=== PATIENT | male | born 1970 | race Hispanic/Latino ===

== ENCOUNTER 2017-06-30 09:47 | Inpatient (IN) | payer SELFPAY ==
[2017-06-30] MEDS ORDERED: Lorazepam 2 MG/ML VIAL ONE (10:23)
--- NOTE | 2017-06-30 10:28 | RAD ---
PA AND LATERAL CHEST: Date: 06/30/17 HISTORY: Chest pain. COMPARISON: None available. FINDINGS: The cardiac silhouette and pulmonary vasculature are within normal limits. The lungs are clear. The o sseous structures are intact. IMPRESSION: No acute cardiopulmonary process. POS: [facility]
[2017-06-30 10:50] LABS: #Lymphocytes 1.2 thou/uL (1.20-3.40); #Monocytes 0.7 thou/uL (0.11-0.59); #Neutrophils 7.3 thou/uL (1.40-6.50); %Basophils 0.2 % (0.0-1.0); %Eosinophils 0.1 % (0.0-10.0); %Lymphocytes 12.8 % (21.0-51.0); %Monocytes 7.2 % (0.0-10.0); %Neutrophils 79.7 % (42.0-75.0); Hemoglobin 13.6 g/dL (14.0-18.0); Mean Corpuscular HGB CONC 35.4 g/dL (32.0-36.0); Mean Corpuscular Hemoglobin 31.8 pg (27.0-31.0); Mean Corpuscular Volume 89.9 fl (80.0-94.0); Platelet Count 292 thou/uL (130-400); RBC Distribution Width 11.3 % (11.5-14.5); Red Blood Cell (RBC) Count 4.29 mill/uL (4.70-6.10); White Blood Cell (WBC) Count 9.2 thou/uL (4.8-10.8)
[2017-06-30 11:11] LABS: Acetaminophen Less than 6.0 mcg/mL (10.0-30.0); Alcohol 182 mg/dL (Less than 10); Salicylate Less than 8.0 mg/dL (15.0-30.0)
[2017-06-30 11:17] LABS: Troponin I Less than 0.010 ng/mL (< 0.028)
[2017-06-30 11:20] LABS: ALT (SGPT) 64 U/L (8-55); AST (SGOT) 63 U/L (5-34); Alkaline Phosphatase 96 U/L (40-150); Anion Gap 16 mmol/L (10-20); BUN (Urea Nitrogen) 4 mg/dL (8.9-20.6); Bilirubin, Total 0.7 mg/dL (0.2-1.2); CK (CPK) 1233 U/L (30-200); Calc. Creatinine Clearance 0 mL/min (70-130); Calcium 7.5 mg/dL (7.8-10.44); Carbon Dioxide 22 mmol/L (22-29); Chloride 89 mmol/L (98-107); Estimated GFR-MDRD Greater than 90; Globulin 2.7 g/dL (2.4-3.5); Glucose 122 mg/dL (70-105); Protein, Total 6.7 g/dL (6.0-8.3); Sodium 124 mmol/L (136-145)
[2017-06-30 11:21] LABS: CKMB 34.6 ng/mL (0-6.6)
[2017-06-30 11:27] LABS: Potassium 2.6 mmol/L (3.5-5.1)
[2017-06-30 11:37] LABS: Lipase 12 U/L (8-78)
[2017-06-30] MEDS ORDERED: Ondansetron PF 4 MG/2 ML Vial ONE (11:53)
[2017-06-30] MEDS ORDERED: Pantoprazole 40 MG VIAL ONE (11:53)
[2017-06-30] MEDS ORDERED: Potassium Chloride 20 MEQ TAB ONE (11:53)
[2017-06-30 12:00] LABS: Bilirubin Negative (Negative); Blood, Urine Trace (Negative); Clarity CLEAR (Clear); Glucose, Urine (Dipstick) Negative (Negative); Leukocyte Negative (Negative); Nitrite Negative (Negative); Protein, Urine (Dipstick) Negative (Neg-Trace); Specific Gravity, Urine 1.011 (1.002-1.036); Urobilinogen 0.2 mg/dL (0.2-1.0)
[2017-06-30 12:06] LABS: Bacteria/HPF None Seen HPF (None Seen); Hyaline Casts/LPF 0-3 HYALINE CAST LPF (0-3 Hyaline); RBC/HPF 0-3 HPF (0-3); Squamous Epithelial None Seen HPF (0-3); WBC/HPF None Seen HPF (0-3)
[2017-06-30 12:12] LABS: Amphetamine Not Detected (NotDetected); Barbiturates Screen Not Detected (NotDetected); Benzodiazepine Screen Not Detected (NotDetected); Cocaine Metabolite Screen Detected (NotDetected); Medtox Control Line Valid? VALID (VALID); Medtox Reader # READER 1; Methadone Not Detected (NotDetected); Methamphetamine Not Detected (NotDetected); Opiate Screen Not Detected (NotDetected); Oxycodone Screen Not Detected (NotDetected); Phencyclidine (PCP) Not Detected (NotDetected); THC/Cannabinoid Screen Not Detected (NotDetected); Tricyclic Screen Not Detected (NotDetected)
[2017-06-30] MEDS ORDERED: Potassium Chloride 20 MEQ in Sodium Chloride 0.9% 250 ML 250 ML IVPB SCH (12:15)
[2017-06-30] MEDS ORDERED: Multivitamins, Adult 10 ML, Thiamine HCl 100 MG, Folic Acid 1 MG in Dextrose 5 %-0.45 %... IV SCH (12:15)
[2017-06-30 13:57] LABS: Troponin I Less than 0.010 ng/mL (< 0.028)
[2017-06-30] MEDS ORDERED: Acetaminophen 325 MG TAB PO PRN (16:31)
[2017-06-30] MEDS ORDERED: Enoxaparin Sodium 40 MG/0.4 ML SYRINGE SC SCH (16:31)
[2017-06-30] MEDS ORDERED: HYDROcodone/Acetaminophen 5/325 mg Tablet PO PRN (16:31)
[2017-06-30] MEDS ORDERED: Ondansetron ODT 4 MG TAB PO PRN (16:31)
[2017-06-30] MEDS ORDERED: Diazepam 5 MG TAB PO PRN (16:33)
[2017-06-30] MEDS ORDERED: Thiamine HCl 200 MG/2 ML VIAL IM SCH (16:45)
[2017-06-30] MEDS ORDERED: Diazepam 5 MG TAB PO SCH (16:45)
[2017-06-30 17:13] LABS: Troponin I Less than 0.010 ng/mL (< 0.028)
[2017-06-30 17:21] VITALS: BMI 23.2
[2017-06-30 17:22] LABS: CKMB 29.7 ng/mL (0-6.6); Critical Call CKMB RESULT DECREASING
[2017-06-30] MEDS: Potassium Chloride 20 MEQ TAB PO SCH ×3 (17:31→21:08)
[2017-06-30] MEDS: HYDROcodone/Acetaminophen 10/325 mg Tablet PO PRN ×2 (18:02→23:51)
[2017-06-30] MEDS ORDERED: FLU VACC QS2017-18 36 mo. & older 0.5 ML SYRINGE IM ONE (19:00)
[2017-06-30] MEDS: Famotidine 20 MG TAB PO SCH (21:03)
[2017-07-01 00:57] LABS: Troponin I Less than 0.010 ng/mL (< 0.028)
[2017-07-01 01:09] LABS: Critical Call CKMB RESULT DECREASING
[2017-07-01] MEDS ORDERED: Diazepam 5 MG TAB PO PRN (04:00)
[2017-07-01 05:39] LABS: #Eosinphils 0.1 thou/uL (0.0-0.7); #Monocytes 0.7 thou/uL (0.11-0.59); #Neutrophils 4.8 thou/uL (1.40-6.50); %Basophils 0.1 % (0.0-1.0); %Eosinophils 0.8 % (0.0-10.0); %Lymphocytes 15.7 % (21.0-51.0); %Neutrophils 73.4 % (42.0-75.0); Hemoglobin 14.7 g/dL (14.0-18.0); Mean Corpuscular HGB CONC 34.4 g/dL (32.0-36.0); Mean Corpuscular Hemoglobin 31.7 pg (27.0-31.0); Mean Corpuscular Volume 92.2 fl (80.0-94.0); Mean Platelet Volume 7.3 fL (7.4-10.4); Platelet Count 284 thou/uL (130-400); RBC Distribution Width 11.6 % (11.5-14.5); Red Blood Cell (RBC) Count 4.64 mill/uL (4.70-6.10); White Blood Cell (WBC) Count 6.5 thou/uL (4.8-10.8)
[2017-07-01 06:10] LABS: Anion Gap 11 mmol/L (10-20); BUN (Urea Nitrogen) 6 mg/dL (8.9-20.6); CK (CPK) 544 U/L (30-200); Calc. Creatinine Clearance 97 mL/min (70-130); Calcium 9.4 mg/dL (7.8-10.44); Carbon Dioxide 25 mmol/L (22-29); Chloride 103 mmol/L (98-107); Estimated GFR-MDRD Greater than 90; Glucose 92 mg/dL (70-105); Magnesium 2.6 mg/dL (1.6-2.6); Sodium 135 mmol/L (136-145)
[2017-07-01] MEDS ORDERED: Folic Acid 1 MG TAB PO SCH (09:00)
[2017-07-01] MEDS ORDERED: Magnesium Oxide 400 MG TAB PO SCH (09:00)
[2017-07-01] MEDS ORDERED: Multivitamin W/ Minerals 1 TAB PO SCH (09:00)
[2017-07-01] MEDS: HYDROcodone/Acetaminophen 10/325 mg Tablet PO PRN (09:00)
[2017-07-01] MEDS ORDERED: Enoxaparin Sodium 40 MG/0.4 ML SYRINGE SC SCH (09:00)
[2017-07-01] MEDS: Famotidine 20 MG TAB PO SCH (09:01)
[2017-07-01 09:19] LABS: Troponin I Less than 0.010 ng/mL (< 0.028)
[2017-07-01 09:30] LABS: CKMB 9.1 ng/mL (0-6.6)
[2017-07-01 11:45] VITALS: BP 139/86; TEMP 98.5
[2017-07-01] MEDS ORDERED: Multivitamins, Adult 10 ML, Folic Acid 1 MG, Thiamine HCl 100 MG in Dextrose 5 %-0.45 %... IV SCH (12:00)
--- NOTE | 2017-07-01 22:31 | DIS ---
DATE OF ADMISSION: 06/30/2017 DATE OF DISCHARGE: 07/01/2017 DISCHARGE DIAGNOSES: 1. Acute alcohol intoxication, improved. 2. Hyponatremia secondary to #1, improved. 3. Rhabdomyolysis, multifactorial, improved. 4. Hypokalemia, resolved. 5. Polysubstance abuse with alcohol and cocaine. 6. Transaminitis secondary to alcohol abuse. CONSULTATIONS: None. PERTINENT LAB AND X-RAY FINDINGS: Sodium ranged between 124-135, potassium ranged between 2.6-4.0, A ST 63, ALT 64, alkaline phosphatase 96, total CK ranged between 544-1233, troponin I negative x5. BN P less than 10. Albumin 4.0, lipase 12. TSH 0.28. CBC showed a hemoglobin ranging between 13.6-14. 7. Urine drug screen positive for cocaine. Plasma alcohol level 182. Portable chest x-ray dated showed no acute cardiopulmonary process. HOSPITAL COURSE: Patient was admitted to the telemetry unit after initially presenting with muscle c ramps, chest pain, and multiple metabolic derangements including hyponatremia, hypokalemia, and eleva william total CK consistent with rhabdomyolysis. The patient was noted with acute alcohol intoxication a s well as acute ingestion of cocaine with positive urine drug screen for cocaine metabolites. The pa tient was given intravenous fluids, IV banana bag in addition to Protonix, potassium supplementation, and Ativan. The patient received general supportive measures throughout the hospital course with te lemetry monitoring showing sinus mechanism without evidence of acute arrhythmia or dysrhythmia. The patient was cautioned regarding the use of alcohol in addition to illicit drug use and its ramificati ons for ongoing health and current presentation. The patient overall remained clinically stable thro ughout the hospital course with resolution of symptoms prior to discharge. The patient tolerated reg ular oral intake, ambulated without assistance or difficulty and remained clinically stable. The pat ient ready for discharge on 07/01/2017. DISCHARGE MEDICATIONS: None. FOLLOWUP: The patient given a list of local [facility] for followup as needed. CONDITION ON DISCHARGE: Stable. ACTIVITY: Ad nora. DIET: Regular. CODE STATUS: FULL. DISPOSITION: Home, 07/01/2017.
--- NOTE | 2017-07-02 02:08 | HP ---
PRIMARY CARE PHYSICIAN: None. CODE STATUS: FULL DATE OF ADMISSION: 06/30/2017 TIME OF SERVICE: 12:30. CHIEF COMPLAINT: Chest pain. HISTORY OF PRESENT ILLNESS: Mr. Stoner is a 46-year-old [place] male with history of chronic alcoholism, who said he drank too much the night before presentation. He had headache and now described hands tingling and some chest discomfort. The chest discomfort was in the center of his chest. It was worse with palpation. He had a negative workup in the ER. We were called for admission. Other labs showed a myoglobin elevated with a CK of 1233 and alcohol level 182. No history of heart problems. PAST MEDICAL HISTORY: 1. Hypertension. 2. Gastritis. 3. Alcohol abuse. PAST SURGICAL HISTORY: None. HOME MEDICATIONS: None. ALLERGIES: NKDA. FAMILY HISTORY: Negative for clotting or bleeding disorder. No immune dysfunction. No premature coronary disease. SOCIAL HISTORY: Negative for daily alcohol, difficult to ascertain how much, he says 3-4 beers a day, but over the last 24 hours he has had maybe 20 beers. Denies any tobacco or IV drug use. REVIEW OF SYSTEMS: A 10-point review of systems was performed, negative for all other systems except stated as per HPI. PHYSICAL EXAMINATION: VITAL SIGNS: Temperature 97, pulse 92, blood pressure 147/103, respiratory rate 24, satting 98% on room air. GENERAL: He is awake. He is alert. He is oriented x3. He is a well developed , well appearing male. He appears to be in no acute distress. HEENT: He is normocephalic, atraumatic. His pupils are equal, round, reactive to light bilaterally, mucous membranes moist and no visible lesion. No thrush. NECK: Supple, without lymphadenopathy, JVD, or thyromegaly. Normal carotid upstrokes. I do not appreciate bruits. LUNGS: Clear. There are no wheezes, no rales or rhonchi. He has good air movement and symmetrical chest excursion. CARDIOVASCULAR: He has normal S1 and S2. No S3 or S4. He is slightly tachycardic, but no audible murmurs. ABDOMEN: Soft. It is nontender, nondistended, no mass, no organomegaly. He has good bowel sounds in all four quadrants. There is no rebound, rigidity or guarding. EXTREMITIES: No cyanosis, no clubbing, no edema. SKIN: Warm, moist and well perfused. He has no rashes or lesions. MUSCULOSKELETAL: Normal to inspection. He has no joint inflammation and no effusions. His chest wall is tender to palpation and does reproduce his symptoms. NEUROLOGIC: Cranial nerves II-XII are grossly intact with no focal neurologic deficits. He has 5/5 strength and normal speech pattern. LABORATORY DATA: Sodium 126, potassium 2.6, chloride 89, bicarbonate 22, BUN 4 , creatinine 0.56, glucose 122, and calcium is 7.5. Because the liver functions were normal except for an AST of 63 and ALT of 64. CBC showed a white count of 9.2, hemoglobin 13.6, hematocrit 38.6 and platelet count was 292,000. BNP was 10. Troponin I is less than 0.010. CK of 1233 and CK-MB of 34.6. Alcohol level was in the 182. Chest x-ray showed no acute cardiopulmonary disease. ASSESSMENT AND PLAN: 1. Noncardiac chest pain: It is clear, this is not cardiac in nature. He will get serial cardiac biomarkers tonight. No family history of premature disease. His CK is elevated. CK-MB is elevated due to what I suspect was a fall. His chest is tender to palpation. Likely go home tomorrow. 2. Hyponatremia likely due to chronic alcohol abuse. I will place him on saline tonight. 3. Hypokalemia. Potassium is 2.6. He got 20 mg IV and 60 orally in the ER. We will continue to replace and recheck in the morning. 4. History of hypertension. Blood pressure is fairly normal now. 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 5. History of gastritis. We will place him on Pepcid overnight. MTDD
--- NOTE | 2017-07-14 20:21 | EKG ---
Test Reason : Blood Pressure : / mmHG Vent. Rate : 102 BPM Atrial Rate : 102 BPM P-R Int : 142 ms QRS Dur : 096 ms QT Int : 374 ms P-R-T Axes : 066 082 017 degrees QTc Int : 487 ms Sinus tachycardia Otherwise normal ECG Confirmed by CARLINE QUINN MD ([id number]), assistant film editor EKATERINA MOSELEY ([id number]) on 07/14/2017 8:20:29 PM Referred By: Confirmed By:CARLINE QUINN MD
== END 2017-07-01 13:40 | disposition home or self-care (01) | DRG 558 ==
LOC: ERS 09:47 → ERHOLD 12:21 → 2NO 16:30
PROVIDERS: ADMIT Internal Medicine Infectious Disease; ATTEND Internal Medicine Infectious Disease
DX: M62.82 Rhabdomyolysis (principal); E87.1 Hypo-osmolality and hyponatremia; E87.6 Hypokalemia; F14.10 Cocaine abuse, uncomplicated; R07.9 Chest pain, unspecified; I10 Essential (primary) hypertension; F10.129 Alcohol abuse with intoxication, unspecified; K29.70 Gastritis, unspecified, without bleeding
CPT/HCPCS: 36415; 71046; 80048; 80053; 80306; 80307; 81003; 81015; 82553; 83690; 83735; 83880; 84443; 84484; 85025; 90471; 90682; 93005; 96361; 96365; 96366; 96375; C9113; G0008; J1650; J2060; J2405; J3411; J3475; J3480; J7042; J7050; Q0162; Q2036